=== PATIENT | female | born 1995 | race African-American/Black ===

== ENCOUNTER 2020-12-11 18:14 | Inpatient (IN) ==
[2020-12-11] MEDS ORDERED: Lactated Ringers 1000 ml BAG 1,000 ML IV ONE (19:25)
[2020-12-11] MEDS ORDERED: Buffered Lidocaine 1% SYRIN 1 ml INTRADERM ONE (19:25)
[2020-12-11 21:19] LABS: Urine Benzodiazepine Screen None Detected (None Detect); Urine Cannabinoids Screen None Detected (None Detect); Urine Opiates Screen None Detected (None Detect)
[2020-12-11 21:58] LABS: ABS Eosinophils 0.1 10^3/ul (0-0.6); ABS Lymphocytes 1.5 10^3/ul (1.0-4.8); ABS Monocytes 0.8 10^3/ul (0-0.8); ABS Neutrophils 6.9 10^3/ul (1.5-7.7); Hematocrit 35 % (35-47); Hemoglobin 11.8 g/dL (12.0-16.0); Lymphocyte % 15.7 %; Mean Corpuscular HGB Conc 34 g/dL (31-36); Mean Corpuscular Hemoglobin 32 pg (27-31); Mean Corpuscular Volume 93 fL (80-97); Mean Platelet Volume 8.2 fL (7.4-10.4); Platelet Count 222 10^3/uL (150-450); Red Blood Count 3.73 10^6 /uL (3.70-4.87); Red Cell Distribution Width 13 % (10-15); White Blood Count 9.3 10^3/uL (3.5-10.8)
[2020-12-12] MEDS: Lactated Ringers 1000 ml BAG 1,000 ML IV SCH ×2 (09:43→12:41)
[2020-12-12] MEDS ORDERED: Oxytocin in LR 20 UNITS/1,000 ML BAG IVPB SCH ×2 (10:00→15:00)
[2020-12-12] MEDS ORDERED: OBEPIDURAL 250 ML EPIDURAL ONE (11:16)
[2020-12-12] MEDS ORDERED: Sodium Citrate/Citric Acid LIQ 15 ML UDC PO PRN (12:38)
[2020-12-12] MEDS ORDERED: Lactated Ringers 1000 ml BAG 1,000 ML IV ONE (12:38)
[2020-12-12] MEDS ORDERED: Phenylephrine 40 mcg/mL 10mL (400mcg) SYRINGE IV PUSH PRN ×2 (12:38)
[2020-12-12] MEDS ORDERED: EPHEDrine (Pressors) 50 MG/ML VIAL IV PUSH PRN ×2 (12:38)
[2020-12-12] MEDS ORDERED: OBEPIDURAL 250 ML EPIDURAL SCH (13:00)
[2020-12-12] MEDS ORDERED: Lactated Ringers 1000 ml BAG 1,000 ML IV SCH ×2 (13:00→15:00)
[2020-12-12] MEDS ORDERED: Glycerin ADULT 2.4 gm SUPP PR PRN (14:13)
[2020-12-12] MEDS ORDERED: Dibucaine 1% OINT 28.35 GM TUBE PR PRN (14:13)
[2020-12-12] MEDS ORDERED: RHO D Immune Globulin (HUMAN) 300 MCG = 1,500 I.U. INJ IM PRN (14:13)
[2020-12-12] MEDS ORDERED: Witch Hazel PAD JAR TOPICAL PRN (14:13)
[2020-12-12] MEDS ORDERED: Ammonia Inhalant 1 EA AMP ONE (16:58)
[2020-12-12] MEDS ORDERED: Lidocaine 1% VIAL 10 MG/ML VIAL ONE (16:58)
[2020-12-13 08:10] LABS: ABS Eosinophils 0.1 10^3/ul (0-0.6); ABS Lymphocytes 1.6 10^3/ul (1.0-4.8); ABS Monocytes 0.7 10^3/ul (0-0.8); ABS Neutrophils 7.9 10^3/ul (1.5-7.7); Eosinophil % 0.9 %; Hematocrit 32 % (35-47); Hemoglobin 10.9 g/dL (12.0-16.0); Lymphocyte % 15.4 %; Mean Corpuscular HGB Conc 34 g/dL (31-36); Mean Corpuscular Hemoglobin 31 pg (27-31); Mean Corpuscular Volume 92 fL (80-97); Mean Platelet Volume 7.8 fL (7.4-10.4); Nucleated Red Blood Cells % 0.1; Platelet Count 208 10^3/uL (150-450); Red Blood Count 3.47 10^6 /uL (3.70-4.87); Red Cell Distribution Width 13 % (10-15); White Blood Count 10.4 10^3/uL (3.5-10.8)
[2020-12-14 09:53] VITALS: BP 140/71
== END 2020-12-14 15:05 | disposition home or self-care (01) | DRG 560 ==
LOC: MCHOBOUT 18:14 → MCHOB 18:55
PROVIDERS: ADMIT Obstetrics & Gynecology; ATTEND Obstetrics & Gynecology